=== PATIENT | male | born 1990 | race Caucasian/White ===

== ENCOUNTER 2023-11-30 11:25 | Outpatient (CLI) | payer MEDICAID, OTHER ==
--- NOTE | 2023-11-30 13:45 | XRAY Report ---
PROCEDURE: Knee 2V LT INDICATIONS: BURSITIS, LEFT KNEE TECHNIQUE: 2 views of the knee(s) were acquired. COMPARISON: None. FINDINGS: Bones: No fractures or dislocations. No suspicious bony lesions. Soft tissues: Small knee joint effusion. No suspicious soft tissue calcifications or masses. Prepat ellar soft tissue swelling. IMPRESSION: No acute bony abnormality. Prepatellar soft tissue swelling. Reviewed by: Jasbir Pat MD on 11/30/2023 1:44 PM PDT Approved by: Jasbir Pat MD on 11/30/2023 1:44 PM PDT Station ID: [id number]
== END 2023-11-30 13:11 | disposition home or self-care (01) ==
LOC: DI.N 11:25
PROVIDERS: ATTEND Physician Assistant Medical
DX: M70.52 Other bursitis of knee, left knee (principal)